=== PATIENT | female | born 1970 | race Caucasian/White ===

== ENCOUNTER 2017-03-30 07:46 | Day surgery (SDC) | payer OTHER ==
[~2017-03-30 07:46] MED LIST: Buffered Lidocaine 0.9% SYRIN* 5 ML/SYR SYRINGE INTRADERM ONE; Dexamethasone IV* 4 MG/ML 1 ML (4 MG) IV SLOW PU ONE; Famotidine IV* 10 MG/ML 2 ML (20 mg) IV ONE
[2017-03-30] MEDS ORDERED: Dexamethasone IV* 4 MG/ML 1 ML (4 MG) ONE (07:56)
[2017-03-30] MEDS ORDERED: Famotidine IV* 10 MG/ML 2 ML (20 mg) ONE (07:56)
[2017-03-30] MEDS ORDERED: ceFAZolin 2 GM PREMIX (*) 2 GM/50 ML BAG IVPB ONE (07:56)
[2017-03-30] MEDS ORDERED: Buffered Lidocaine 0.9% SYRIN* 5 ML/SYR SYRINGE ONE (07:56)
[2017-03-30] MEDS ORDERED: DiMENhydriNATE IV* 50 MG/ML VIAL IV PUSH PRN (07:58)
[2017-03-30] MEDS ORDERED: fentaNYL* 50 MCG/ML 2 ML VIAL (100 MCG VIAL) IV PRN (07:58)
[2017-03-30] MEDS ORDERED: fentaNYL* 50 MCG/ML 2 ML VIAL (100 MCG VIAL) ONE (08:17)
[2017-03-30] MEDS ORDERED: Midazolam* 1 MG/ML 2 ML VIAL (2 MG) ONE (08:17)
[2017-03-30] MEDS ORDERED: Scopolamine 1.5 mg* PATCH ONE (08:33)
[2017-03-30] MEDS ORDERED: VASOPRESSIN 20 UNITS/ML 1 ML VIAL ONE (09:04)
[2017-03-30] MEDS ORDERED: Ferric Subsulfate* 8 ML BTL ONE (09:05)
[2017-03-30] MEDS ORDERED: Iodine Strong (LUGOL'S)* 14 ML BTL ONE (09:05)
[2017-03-30] MEDS ORDERED: Acetic Acid 0.25%* 250 ML BTL ONE (09:27)
[2017-03-30] MEDS ORDERED: Ondansetron INJ* 2 MG/ML VIAL ONE (09:44)
[2017-03-30] MEDS ORDERED: Propofol* 10 MG/ML 20 ML BTL IV PUSH ONE (09:44)
[2017-03-30] MEDS ORDERED: Ketorolac INJ* 30 MG/ML 1 ML VIAL ONE (09:44)
[2017-03-30] MEDS ORDERED: oxyCODONE/Acetamin 5/325 MG* TAB PO PRN ×2 (10:30→10:32)
[2017-03-30] MEDS ORDERED: Ibuprofen TAB* 600 MG PO PRN (10:30)
[2017-03-30 11:05] VITALS: BP 122/84
[2017-03-30] MEDS ORDERED: Ibuprofen TAB* 600 MG ONE (11:06)
--- NOTE | 2017-03-31 03:37 | OP ---
OPERATIVE REPORT: DATE OF OPERATION: 03/30/17 - [facility] DATE OF : 1970 SURGEON: Jennifer Cantu MD ANESTHESIOLOGIST: Dr. Sims. ANESTHESIA: General endotracheal anesthesia PRE-OP DIAGNOSIS: Moderate dysplasia NETTA 2. The patient has Mirena IUD, would like to have that Mirena removed and a new Mirena placed. Mirena is for menorrhagia. POST-OP DIAGNOSIS: Moderate dysplasia NETTA 2. The patient has Mirena IUD, would like to have that Mirena removed and a new Mirena placed. Mirena is for menorrhagia. OPERATIVE PROCEDURE: Colposcopy, Dejesus cone biopsy size small, endocervical curettage. Removal of Mirena #1. Placement of Mirena #2. ESTIMATED BLOOD LOSS: Minimal. Less than 50 cc. FINDINGS: Small anteverted uterus. Mirena was removed. Intact 1 string and otherwise completely intact. On colposcopy, there were acetowhite changes at 6 o'clock. There were no abnormal vessels seen. Uterus sounded to 7 after the cone biopsy. No adnexal mass palpated. Those were the findings. COMPLICATIONS: None. COUNTS: Sponge, lap, and needle count were correct x2. CONDITION: The patient was brought to recovery room awake and in stable condition. DESCRIPTION OF PROCEDURE: The patient was brought to the operating room. When general anesthesia was found to be adequate and exam under anesthesia was performed with the above findings noted, the Mirena IUD was removed. Colposcopy was performed with the above findings noted. Dejesus cone biopsy size small was performed, endocervical curettage was performed. The cervix was then prepped with Betadine. The uterus sounded to 7 and the Mirena IUD was placed without difficulty. The strings were cut to approximately 3 cm outside the external os. The patient tolerated the procedure well. Sponge, lap, and needle count were correct x2. There was excellent hemostasis achieved with the application of Monsel's solution. The patient was brought recovery room awake and in stable condition. [id number]/[facility] #: [id number] [facility]
== END 2017-03-30 11:53 | disposition home or self-care (01) ==
LOC: OR 07:46
PROVIDERS: ATTEND Obstetrics & Gynecology
DX: N87.1 Moderate cervical dysplasia (principal); N92.0 Excessive and frequent menstruation with regular cycle; Z30.433 Encounter for removal and reinsertion of intrauterine contraceptive device; L40.50 Arthropathic psoriasis, unspecified
CPT/HCPCS: 81025; 88305; 88307; 88341; 88342; A9270-GY; J0690; J1100; J1885; J2250; J2405; J2704; J3010; J7300